=== PATIENT | female | born 1995 ===

== ENCOUNTER 2018-07-05 08:26 | Emergency (ER) | payer OTHER ==
[2018-07-05 08:33] VITALS: BMI 30.1
[2018-07-05] MEDS ORDERED: Sodium Chloride 0.9% 1,000 ML IV STA (08:59)
[2018-07-05 09:23] LABS: BASO % 0.7 % (0.0-2.0); EOS # 0.2 K/uL (0.0-0.7); EOS % 2.6 % (0.0-4.0); HEMOGLOBIN 14.2 g/dL (12.0-16.0); LYMPH # 2.1 K/uL (1.0-4.3); LYMPH % 30.2 % (20.0-40.0); MEAN CELL VOLUME 85.2 fl (81.0-99.0); MEAN CORPUSCULAR HEMOGLOBIN 28.8 pg (27.0-31.0); MEAN CORPUSCULAR HGB CONC 33.8 g/dL (33.0-37.0); MEAN PLATELET VOLUME 9.5 fl (7.2-11.7); MONO # 0.6 K/uL (0.0-0.8); MONO % 8.7 % (0.0-10.0); NEUT % 57.8 % (50.0-75.0); NRBC % 0.1 % (0.0-0.0); RBC 4.94 Mil/uL (3.80-5.20); RED CELL DISTRIBUTION WIDTH 13.2 % (11.5-14.5)
[2018-07-05 09:29] LABS: ALB/GLOB RATIO 1.3 (1.0-2.1); ALBUMIN 4.4 g/dL (3.5-5.0); ALT/SGPT 28 U/L (9-52); AST/SGOT 21 U/L (14-36); BLOOD UREA NITROGEN 13 mg/dl (7-17); CALCIUM 9.2 mg/dL (8.4-10.2); GFR NON-AFRICAN AMERICAN > 60; LIPASE 40 U/L (23-300)
--- NOTE | 2018-07-05 10:02 | ED PDOC ---
HPI: Abdomen Time Seen by Provider: 07/05/18 08:44 Chief Complaint (Nursing): GI Problem Chief Complaint (Provider): GI Problem History Per: Patient History/Exam Limitations: no limitations Onset/Duration Of Symptoms: Days (x4) Current Symptoms Are (Timing): Still Present Additional Complaint(s): Patient is a 23 y/o female with no significant PMHx who presents to the ED for evaluation of abdominal pain, nausea, and vomiting, for the past four days. Patient states her symptoms are exacerbated when eating and drinking. Patient reports her symptoms started after having a fever and sore throat for a couple days. Patient has taken Advil, Nyquil, and Dayquil with no relief of symptoms. Currently, patient denies fever, sore throat, travel, sexual activity, and vaginal complaints. PCP: None Past Medical History Reviewed: Historical Data, Nursing Documentation, Vital Signs Vital Signs: Last Vital Signs Temp 98.3 F 07/05/18 08:33 Pulse 66 07/05/18 08:33 Resp 19 07/05/18 08:33 BP 122/81 07/05/18 08:33 Pulse Ox Primary Care Provider: FAMILY PROVIDER,NO - Medical History PMH: Anxiety - Surgical History Surgical History: No Surg Hx - Family History Family History: States: Diabetes, Other Other Family History: gallstones - Immunization History Hx Tetanus Toxoid Vaccination: No Hx Influenza Vaccination: No Hx Pneumococcal Vaccination: No - Home Medications Home Medications: Ambulatory Orders Medication Instructions Recorded Amoxicillin/Clavulanate [Augmentin 1 tab PO BID #14 tab 09/07/16 875 MG-125 MG] Azithromycin [Zithromax] 250 mg PO DAILY 09/07/16 Tylenol Cold-Flu Day-Nt Caplet 2 tab PRN PRN 09/07/16 Famotidine [Pepcid] 20 mg PO DAILY #14 tab 07/05/18 Omeprazole 20 mg PO DAILY #30 zaida. 07/05/18 - Allergies Allergies/Adverse Reactions: Allergies Allergy/AdvReac Type Severity Reaction Status Date / Time No Known Allergies Allergy Verified 07/05/18 08:38 Review of Systems ROS Statement: Except As Marked, All Systems Reviewed And Found Negative ENT: Negative for: Throat Pain Gastrointestinal: Positive for: Nausea, Vomiting, Abdominal Pain. Negative for: Diarrhea Genitourinary Female: Negative for: Vaginal Discharge, Vaginal Bleeding Physical Exam - Reviewed Nursing Documentation Reviewed: Yes Vital Signs Reviewed: Yes - Physical Exam Appears: Positive for: No Acute Distress Head Exam: Positive for: ATRAUMATIC, NORMAL INSPECTION, NORMOCEPHALIC Skin: Positive for: Normal Color, Warm, DRY Eye Exam: Positive for: EOMI, Normal appearance, PERRL ENT: Positive for: Normal ENT Inspection. Negative for: Pharyngeal Erythema, Tonsillar Exudate, Tonsillar Swelling Neck: Positive for: Normal, Painless ROM, Supple Cardiovascular/Chest: Positive for: Regular Rate, Rhythm. Negative for: Murmur Respiratory: Positive for: Normal Breath Sounds. Negative for: Respiratory Distress Pulses-Radial (L): 2+ Pulses-Radial (R): 2+ Gastrointestinal/Abdominal: Positive for: Normal Exam, Soft, Tenderness (diffuse). Negative for: Other (swelling, deformity, or ecchymosis) Back: Positive for: Normal Inspection. Negative for: L CVA Tenderness, R CVA Tenderness Extremity: Positive for: Normal ROM. Negative for: Pedal Edema, Deformity Neurological/Psych: Positive for: Awake, Alert, Oriented (x3) - Laboratory Results Result Diagrams: 07/05/18 09:07 07/05/18 09:07 Lab Results: Total Bilirubin 0.7 mg/dl (0.2-1.3) 07/05/18 09:07 AST 21 U/L (14-36) 07/05/18 09:07 ALT 28 U/L (9-52) 07/05/18 09:07 Alkaline Phosphatase 81 U/L (38-126) 07/05/18 09:07 Total Protein 7.6 G/DL (6.3-8.2) 07/05/18 09:07 Albumin 4.4 g/dL (3.5-5.0) 07/05/18 09:07 Globulin 3.3 gm/dL (2.2-3.9) 07/05/18 09:07 Albumin/Globulin Ratio 1.3 (1.0-2.1) 07/05/18 09:07 Lipase 40 U/L (23-300) 07/05/18 09:07 - Progress Re-evaluation Time: 12:12 Condition: Re-examined, Improved Medical Decision Making Medical Decision Making: Time: 0858 Impression: Abdominal Pain and Vomiting DDx includes but not limited to UTI, gastritis, pancreatitis, and gallbladder disease. Plan: CMP Lipase Urine Urine Dipstick CBC IV Fluids Pepcid 20 mg IVP Zofran 4 mg IV Gallbladder US Time: 1109 Gallbladder US FINDINGS: LIVER: Measures 16.4 cm in length. Normal echogenicity of the liver parenchyma. No mass. No intrahepatic bile duct dilatation. GALLBLADDER: Unremarkable. No gallstones. Is apparent hyper echogenicities posterior to the gallbladder probably within the gastric antrum or duodenum COMMON BILE DUCT: Measures 4.4 mm. No stones. No dilatation. PANCREAS: Unremarkable as visualized. No mass. No ductal dilatation. RIGHT KIDNEY: Measures 11.1 x 5.8 x 4.3 cm in length. Normal echogenicity. No calculus, mass, or hydronephrosis. AORTA: No aneurysmal dilatation. IVC: Unremarkable. OTHER FINDINGS: None IMPRESSION: Findings regional to the gallbladder appear posterior to the gallbladder likely relate to nearby duodenal contents. No reproduced gallstones or gallbladder wall thickening or pericholecystic fluid or other finding seen to suggest acute cholecystitis. Clinical follow-up recommended. Scribe Attestation: Documented by Enrrique Isidro, acting as a scribe Mouna Garcia MD. Provider Scribe Attestation: All medical record entries made by the Scribe were at my direction and personally dictated by me. I have reviewed the chart and agree that the record accurately reflects my personal performance of the history, physical exam, medical decision making, and the department course for this patient. I have also personally directed, reviewed, and agree with the discharge instructions and disposition. Disposition - Clinical Impression Clinical Impression: Abdominal pain, Vomiting - Patient ED Disposition Is Patient to be Admitted: No Doctor Will See Patient In The: Office Counseled Patient/Family Regarding: Studies Performed, Diagnosis, Need For Followup - Disposition Referrals: [facility] [Outside] Disposition: Routine/Home Disposition Time: 12:13 Condition: IMPROVED Additional Instructions: RAZ GONZALEZ, thank you for letting us take care of you today. Your provider was Luke Garcia MD and you were treated for VOMITING. The emergency medical care you received today was directed at your acute symptoms. If you were prescribed any medication, please fill it and take as directed. It may take several days for your symptoms to resolve. Return to the Emergency Department if your symptoms worsen, do not improve, or if you have any other problems. Please contact your doctor or call one of the physicians/clinics you have been referred to that are listed on the Patient Visit Information form that is included in your discharge packet. Bring any paperwork you were given at discharge with you along with any medications you are taking to your follow up visit. Our treatment cannot replace ongoing medical care by a primary care provider outside of the emergency department. Thank you for allowing the [facility] team to be part of your care today. If you had an X-Ray or CT scan: A Radiologist will review the ED reading if any change in treatment is needed we will contact you. If you had a blood, urine, or wound culture: It will take several days for the results, if any change in treatment is needed we will contact you. Prescriptions: Famotidine [Pepcid] 20 mg PO DAILY #14 tab Omeprazole 20 mg PO DAILY #30 capsule.dr Instructions: Stomach Ache and Stomach Upset Forms: [facility] ([place]ian)
--- NOTE | 2018-07-05 11:13 | US ---
Date of service: 07/05/2018 HISTORY: epigastric pain postprandial COMPARISON: None. TECHNIQUE: Sonographic evaluation of the right upper quadrant of the abdomen. FINDINGS: LIVER: Measures 16.4 cm in length. Normal echogenicity of the liver parenchyma. No mass. No intrahepatic bile duct dilatation. GALLBLADDER: Unremarkable. No gallstones. Is apparent hyper echogenicities posterior to the gallbladder probably within the gastric antrum or duodenum COMMON BILE DUCT: Measures 4.4 mm. No stones. No dilatation. PANCREAS: Unremarkable as visualized. No mass. No ductal dilatation. RIGHT KIDNEY: Measures 11.1 x 5.8 x 4.3 cm in length. Normal echogenicity. No calculus, mass, or hydronephrosis. AORTA: No aneurysmal dilatation. IVC: Unremarkable. OTHER FINDINGS: None IMPRESSION: Findings regional to the gallbladder appear posterior to the gallbladder likely relate to nearby duodenal contents. No reproduced gallstones or gallbladder wall thickening or pericholecystic fluid or other finding seen to suggest acute cholecystitis. Clinical follow-up recommended.
[2018-07-05 13:40] VITALS: BP 113/66; PULSE 54; RESP 18; TEMP 97.9; O2SAT 100
== END 2018-07-05 13:55 | disposition home or self-care (01) ==
LOC: H.ER 08:26
DX: R10.9 Unspecified abdominal pain (principal); R11.2 Nausea with vomiting, unspecified
CPT/HCPCS: 76705; 80053; 81025; 83690; 85025; 96361; 96374; 96375; 99284; J2405; J7030